=== PATIENT | male | born 1965 | race Caucasian/White ===

== ENCOUNTER 2024-12-14 14:43 | Emergency (ER) | payer MEDICAID, OTHER ==
[2024-12-14] MEDS: Bacitracin Oint 1 GM U/D Packet TOP ONE (17:25)
== END 2024-12-14 18:08 | disposition home or self-care (01) ==
LOC: JP.ED 14:43
DX: S81.012A Laceration without foreign body, left knee, initial encounter (principal); E78.00 Pure hypercholesterolemia, unspecified; W29.3XXA Contact with powered garden and outdoor hand tools and machinery, initial encounter
CPT/HCPCS: 12005; 73562; 99283; J2003